=== PATIENT | male | born 1975 | race Caucasian/White ===

== ENCOUNTER 2019-04-30 23:47 | Inpatient (IN) | payer BC ==
[~2019-04-30] VITALS: Ht 172.7 cm; Wt 83.9 kg
[~2019-04-30 23:47] MED LIST: LANS30CA56
--- NOTE | 2019-04-30 23:58 | NUR ---
Patient ambulating with steady gait. A&O x4. c/o sharp abd pain that radiates to the back 12/29. per patient started at 6am. has tried multiple OTC medication with no relief. Denies any N / V / D. Speech is clear and able to make needs known / follow commands. Breathing even and unlabored. Denies any SOB. Denies any discomfort.
[2019-04-30] MEDS ORDERED: SERT25TA PO (23:59)
--- NOTE | 2019-05-01 00:03 | NUR ---
Dr. Adams at bedside for M[facility]
[2019-05-01] MEDS ORDERED: ONDANSETRON 4 MG/2 ML VIAL ONE ×2 (00:13→02:23)
[2019-05-01] MEDS ORDERED: PANTOPRAZOLE SODIUM 40 MG VIAL ONE (00:13)
[2019-05-01] MEDS ORDERED: HYDROMORPHONE 1 MG/1 ML DISP.SYRIN ONE ×2 (00:13→02:23)
[2019-05-01] MEDS ORDERED: HYDROMORPHONE 1 MG/1 ML DISP.SYRIN IV ONE ×2 (00:15→02:30)
[2019-05-01] MEDS ORDERED: IV NORMAL SALINE 1000 ML BAG IV ONE (00:15)
[2019-05-01] MEDS ORDERED: PANTOPRAZOLE SODIUM 40 MG VIAL IV ONE (00:15)
[2019-05-01] MEDS ORDERED: ONDANSETRON 4 MG/2 ML VIAL IV ONE ×2 (00:15→02:30)
[2019-05-01 00:22] LABS: BASOPHILS # (AUTO) 0.1 K/uL (0.0-8.0); BASOPHILS % (AUTO) 0.5 % (0.0-2.0); EOSINOPHILS # (AUTO) 0.1 K/uL (0.0-0.7); EOSINOPHILS % (AUTO) 0.7 % (0.0-7.0); HEMATOCRIT 44.5 % (36.7-47.1); HEMOGLOBIN 15.2 g/dL (12.5-16.3); LYMPHOCYTES # (AUTO) 1.8 K/uL (20.0-40.0); MEAN CORPUSCULAR HEMOGLOBIN 30.6 uug (23.8-33.4); MEAN CORPUSCULAR HGB CONC 34 g/dL (32.5-36.3); MEAN CORPUSCULAR VOLUME 89.8 fL (73.0-96.2); MONOCYTES # (AUTO) 0.9 K/uL (2.0-10.0); MONOCYTES % (AUTO) 6.6 % (0.0-11.0); NEUTROPHILS # (AUTO) 10.9 K/uL (1.8-8.9); NEUTROPHILS % (AUTO) 79.2 % (38.5-71.5); PLATELET COUNT (AUTO) 146 K/uL (152-348); RED BLOOD CELL COUNT(AUTO) 4.95 MIL/uL (4.06-5.63); WHITE BLOOD COUNT (AUTO) 13.8 K/uL (3.6-10.2)
--- NOTE | 2019-05-01 00:24 | NUR ---
Patient taken to CT scan
--- NOTE | 2019-05-01 00:33 | NUR ---
patient back from CT scan
[2019-05-01 00:38] LABS: BILIRUBIN,DIRECT 0.1 mg/dL (0.0-0.2); BILIRUBIN,TOTAL 0.6 mg/dL (0.2-1.0); POTASSIUM 3.5 mmol/L (3.5-5.1); TOTAL PROTEIN, SERUM 7.8 g/dL (6.4-8.2)
[2019-05-01] MEDS ORDERED: DICYCLOMINE HCL LIQ 10 MG/5 ML UDC PO ONE (01:15)
[2019-05-01] MEDS ORDERED: LIDOCAINE VISCUS 2% 15 ML UDC MM ONE (01:15)
[2019-05-01] MEDS ORDERED: MAG HYDROX/AL HYDROX/SIMETH 30 ML LIQUID UDC PO ONE (01:15)
[2019-05-01] MEDS ORDERED: LIDOCAINE VISCUS 2% 15 ML UDC ONE (01:20)
[2019-05-01] MEDS ORDERED: MAG HYDROX/AL HYDROX/SIMETH 30 ML LIQUID UDC ONE ×2 (01:20→01:21)
[2019-05-01] MEDS ORDERED: DICYCLOMINE HCL LIQ 10 MG/5 ML UDC ONE ×2 (01:21→01:22)
[2019-05-01] MEDS ORDERED: SERT100T PO (01:44)
[2019-05-01] MEDS ORDERED: METRONIDAZOLE 500 MG/NS 100 ML PIGGYBACK IV ONE (01:45)
[2019-05-01] MEDS ORDERED: CEFTRIAXONE 1 G in IV DEXTROSE 5% 50 ML IV ONE (01:45)
[2019-05-01] MEDS ORDERED: CEFTRIAXONE /D5W 50ML IVPB **ER PYXIS IV ONE (01:48)
[2019-05-01] MEDS ORDERED: METRONIDAZOLE 500 MG/NS 100ML 100 ML IV ONE (01:56)
--- NOTE | 2019-05-01 02:08 | NUR ---
Patient in bed awake and watching TV. breathing even and unlabored. NAD noted.
--- NOTE | 2019-05-01 02:30 | NUR ---
Dr. Adams on the phone with GI group reservations coordinator Dr. Garcia
--- NOTE | 2019-05-01 02:31 | NUR ---
Patient updated on plan of care. No further concerns at this time
[2019-05-01 02:46] LABS: *BILIRUBIN,URIN NEGATIVE (NEGATIVE); *CLARITY,URINE CLOUDY (CLEAR); *COLOR,URINE YELLOW (YELLOW); *KETONES,URINE NEGATIVE (NEGATIVE); *UROBILINOGEN,URINE 0.2 E.U./dl (NORMAL); LEUKOCYTE ESTERASE ,URINE NEGATIVE (NEGATIVE); NITRITE, URINE NEGATIVE (NEGATIVE); PH,URINE 7.5 (5.0-8.0); UGLUCOSE NEGATIVE (NEGATIVE)
[2019-05-01 02:49] LABS: *BLOOD, URINE TRACE (NEGATIVE)
[2019-05-01 02:55] LABS: BACTERIA,URINE NONE SEEN /HPF (NONE SEEN); SQUAMOUS EPITHELIAL CELL,UR NONE SEEN /HPF (NONE SEEN); URINE AMORPHOUS PHOSPHATES MANY /HPF; WBC,URINE NONE SEEN /HPF (0-3)
--- NOTE | 2019-05-01 02:55 | NUR ---
Dr. Adams on the phone with Dr. Gutierres
--- NOTE | 2019-05-01 03:20 | NUR ---
Pt. admitted to [facility] , under care of Dr. DOTSON Belongs List completed
[2019-05-01 03:30] VITALS: BP 114/76
[2019-05-01] MEDS ORDERED: ONDANSETRON 4 MG/2 ML VIAL IV PRN (04:00)
[2019-05-01] MEDS ORDERED: MAGNESIUM HYDROXIDE 30 ML LIQUID UDC PO PRN (04:00)
[2019-05-01] MEDS ORDERED: Z GUARD REMEDY PASTE 57 GM TUBE TOP PRN (04:00)
[2019-05-01] MEDS ORDERED: ACETAMINOPHEN 325 MG TABLET PO PRN (04:00)
[2019-05-01] MEDS: MORPHINE SULFATE 2 MG/1 ML DISP.SYRIN IV PRN ×4 (04:47→18:56)
[2019-05-01] MEDS ORDERED: PIPERACILLIN SODIUM/TAZOBACTAM 3.375 G in IV DEXTROSE 5% 50 ML IV ONE (05:00)
[2019-05-01] MEDS: IV NS 1000 ML 1,000 ML IV PRN ×2 (05:26→19:31)
--- NOTE | 2019-05-01 05:39 | NUR ---
patient received from ER. ID band on. Belongings list completed. admissions process complete. a/o x4. no signs of acute distress and v/s stable throughout shift. safety and comfort measures provided. bed in lowest position, side rails up x2, bed alarm on. c/o of pain morphine administered x1. all needs med. will continue plan of care and continue to monitor. at bedside for support.
[2019-05-01] MEDS ORDERED: PIPERACILLIN SODIUM/TAZOBACTAM 3.375 G in IV DEXTROSE 5% 50 ML IV SCH (06:00)
[2019-05-01] MEDS ORDERED: PIPERACILLIN/TAZOBACTAM/D5W 50 ML IV ONE (06:18)
--- NOTE | 2019-05-01 07:26 | NUR ---
RECEIVED PATIENT IN BED, AOX4. AT BEDSIDE. PATIENT COMPLAINS OF ABDOMINAL TIGHTNESS. PRN MEDICATIONS WILL BE GIVEN ORDERED. DENIES SOB. LEFT AC IV INTACT AND FLUSHING WELL WITH NS AT 75CC/HR. SAFETY AND FALL PRECAUTIONS IN PLACE. BED IN LOW POSITION AND LOCKED, CALL LIGHT IN REACH. WILL CONTINUE TO MONITOR.
[2019-05-01] MEDS: HYDROCODONE/APAP 5-325MG TABLET PO PRN ×3 (07:56→21:34)
--- NOTE | 2019-05-01 10:54 | NUR ---
Left a message with the office staff of dr. Trisha Graves to notify him that the patient is Shinto and is refusing blood during the scheduled surgery for laparoscopic appendectomy and possible open.
--- NOTE | 2019-05-01 11:02 | NUR ---
Dr. Rico aware pt. is refusing blood during surgery.
[2019-05-01 11:25] VITALS: BP 113/68
[2019-05-01] MEDS: PIPERACILLIN/TAZOBACTAM/D5W 3.375 G in IV DEXTROSE 5% 50 ML IV SCH ×2 (13:25→21:08)
[2019-05-01] MEDS ORDERED: LIDOCAINE-MPF 2% 5 ML VIAL MC ONE (13:59)
[2019-05-01] MEDS ORDERED: DEXAMETHASONE SOD PHOSPHATE 4 MG INJ IV ONE (13:59)
[2019-05-01] MEDS ORDERED: PROPOFOL 200 MG/20 ML BOTTLE IV ONE (13:59)
[2019-05-01] MEDS ORDERED: GLYCOPYRROLATE 0.2 MG/ML VIAL MC ONE (13:59)
[2019-05-01] MEDS ORDERED: SEVOFLURANE 250 ML BOTTLE IH ONE (13:59)
[2019-05-01] MEDS ORDERED: NEOSTIGMINE METHYLSULFATE 10 MG/10 ML VIAL IV ONE (13:59)
[2019-05-01] MEDS ORDERED: BUPIVACAINE/EPI PF 0.25% 30 ML VIAL ONE (14:56)
--- NOTE | 2019-05-01 15:00 | NUR ---
PATIENT LEFT FOR SURGERY IN STABLE CONDITION. PATIENT REFUSED PAIN MANAGEMENT AT THIS TIME. IV LINE INTACT. CONSENT SIGNED.
[2019-05-01] MEDS ORDERED: MIDAZOLAM HCL 10 MG/2 ML VIAL ONE (15:12)
[2019-05-01] MEDS ORDERED: ROCURONIUM BROMIDE 50 MG/5 ML VIAL ONE (15:13)
[2019-05-01] MEDS ORDERED: SUCCINYLCHOLINE CHLORIDE 200 MG/10 ML VIAL ONE (15:13)
--- NOTE | 2019-05-01 18:05 | NUR ---
PATIENT RETURNED FROM SURGERY. SURGICAL PUNCTURE WOUNDS ASSESSED AND INTACT X2. ABDOMEN MILDLY DISTENDED, NON TENDER. PATIENT REFUSED PAIN MANAGEMENT AT THIS TIME. WILL CONTINUE TO MONITOR.
[2019-05-01 18:30] VITALS: BP 113/70
[2019-05-01 19:00] VITALS: BP 106/73
[2019-05-01 20:19] VITALS: BP 97/62
[2019-05-01 23:59] VITALS: BP 105/77
[2019-05-02] MEDS: MORPHINE SULFATE 2 MG/1 ML DISP.SYRIN IV PRN ×2 (00:23→05:57)
[2019-05-02 05:21] VITALS: BP 110/54
[2019-05-02] MEDS: PIPERACILLIN/TAZOBACTAM/D5W 3.375 G in IV DEXTROSE 5% 50 ML IV SCH (05:59)
--- NOTE | 2019-05-02 06:01 | NUR ---
patient received lying in bed. no signs of acute distress. v/s stable throughout shift. afebrile. dvt pumps on. ivf running at 75cc/hr. mobile to bathroom with no assistance. safety and comfort measures provided. bed in lowest position, side rails up x2 and bed alarm on. morphine administered x2 on my shift. norco administered x1. tolerated well. will continue to monitor and endorse accordingly.
[2019-05-02 06:33] LABS: HEMATOCRIT 42.2 % (36.7-47.1); HEMOGLOBIN 13.9 g/dL (12.5-16.3); LYMPHOCYTES % (AUTO) 6.8 % (20.5-51.5); MEAN CORPUSCULAR HEMOGLOBIN 30.4 uug (23.8-33.4); MEAN CORPUSCULAR HGB CONC 33 g/dL (32.5-36.3); MONOCYTES % (AUTO) 6.8 % (0.0-11.0); NEUTROPHILS % (AUTO) 86.4 % (38.5-71.5); PLATELET COUNT (AUTO) 156 K/uL (152-348); RED BLOOD CELL COUNT(AUTO) 4.59 MIL/uL (4.06-5.63); WHITE BLOOD COUNT (AUTO) 15.1 K/uL (3.6-10.2)
[2019-05-02 06:56] LABS: MAGNESIUM 2.3 mg/dL (1.8-2.4); PHOSPHOROUS 3.1 mg/dL (2.5-4.9)
--- NOTE | 2019-05-02 08:00 | NUR ---
RECEIVED PATIENT SITTING COMFORTABLY IN CHAIR. NO ACUTE DISTRESS OR SOB NOTED. PT DENIES PAIN AT THIS TIME. CALL LIGHT WITHIN REACH. BED LOCKED AND IN LOW POSITION. WILL CONTINUE TO MONITOR FOR SAFETY AND COMFORT.
[2019-05-02] MEDS: HYDROCODONE/APAP 5-325MG TABLET PO PRN ×2 (08:23→12:32)
[2019-05-02] MEDS ORDERED: SERTRALINE HCL 100 MG TABLET PO SCH (09:00)
--- NOTE | 2019-05-02 09:55 | NUR ---
DR WEST CALLED REGARDING PATIENT. PT HAS BEEN CLEARED FOR DISCHARGE BY DR WEST. DR WEST STATED FOR HOSPITALIST TO DETERMINE PAIN MEDS AND ANTIBIOTICS. WILL INFORM HOSPITALIST.
[2019-05-02 12:04] VITALS: BP 116/79
[2019-05-02] MEDS ORDERED: METR-147 PO (15:21)
[2019-05-02] MEDS ORDERED: HYDR-3326 PO (15:21)
[2019-05-02] MEDS ORDERED: CIPR500T5 PO (15:21)
[2019-05-02] MEDS ORDERED: ONDA4TAB11 PO (15:21)
[2019-05-02 16:00] VITALS: BP 115/71
--- NOTE | 2019-05-02 17:00 | NUR ---
PT DISCHARGED. PT ALERT AND ORIENTED X3. NO ACUTE DISTRESS NOTED. NO SOB NOTED. PT DENIES PAIN AT THIS TIME. DISCHARGE INSTRUCTIONS DR WEST'S INFO AND PRESCRIPTIONS GIVEN TO PATIENT WITH GOOD UNDERSTANDING. BELONGINGS AND VALUABLES RETURNED. PT HAS STEADY GAIT. PT ESCORTED TO [facility] BY STAFF VIA WHEELCHAIR. PT ON PRIVATE TRANSPORT ACCOMPANIED BY [facility].
== END 2019-05-02 17:00 | disposition home or self-care (01) | DRG 343 ==
LOC: ER 23:58 → MEDSURG3 05-01 03:16
PROVIDERS: ADMIT Internal Medicine; ATTEND Hospitalist
PROC: 0DTJ4ZZ Resection of Appendix, Percutaneous Endoscopic Approach (ICD-10-PCS; principal; 2019-05-01)
DX: K35.31 Acute appendicitis with localized peritonitis and gangrene, without perforation (principal); Z90.49 Acquired absence of other specified parts of digestive tract; Z83.3 Family history of diabetes mellitus; F41.9 Anxiety disorder, unspecified; D69.6 Thrombocytopenia, unspecified
CPT/HCPCS: 36415; 71045; 83690; 83735; 84100; 85025; 85730; 93005; A4663; C9113; G0378; J0330; J0696; J1100; J1170; J2250; J2270; J2405; J2543; J2710; J3490; J7030; J7060